=== PATIENT | male | born 1970 | race Caucasian/White ===

== ENCOUNTER 2021-05-14 10:54 | Emergency (ER) | payer SELFPAY ==
[2021-05-14] MEDS ORDERED: PERCOCET 10-321 EACH PO (14:04)
== END 2021-05-14 14:15 | disposition home or self-care (01) ==
LOC: FER 10:54
DX: S22.42XA Multiple fractures of ribs, left side, initial encounter for closed fracture (principal); S20.222A Contusion of left back wall of thorax, initial encounter; J90 Pleural effusion, not elsewhere classified; J98.11 Atelectasis; E10.9 Type 1 diabetes mellitus without complications; F17.210 Nicotine dependence, cigarettes, uncomplicated; V86.99XA Unspecified occupant of other special all-terrain or other off-road motor vehicle injured in nontraffic accident, initial encounter
CPT/HCPCS: 71250; 73030; 94010